=== PATIENT | male | born 1955 | race Caucasian/White ===

== ENCOUNTER → 2017-07-03 | Outpatient (CLI) | payer OTHER | END | disposition home or self-care (01) | LOC: KCIC 08:49 | DX: M17.11 Unilateral primary osteoarthritis, right knee (principal); M25.761 Osteophyte, right knee; I70.291 Other atherosclerosis of native arteries of extremities, right leg; Z91.81 History of falling | CPT/HCPCS: 73560 ==

== ENCOUNTER → 2019-04-15 | Outpatient (CLI) | payer MEDICARE ==
[2015-01-25 16:35] VITALS: BP 127/76
--- NOTE | 2019-04-15 12:55 | KCIC ---
EXAM: Right knee, 3 views. HISTORY: Pain after fall. COMPARISON: 07/03/2017. FINDINGS: 3 views of the right knee are obtained. There is moderate medial compartment joint space narrowing with subchondral sclerosis and marginal spurring. There is also moderate patellofemoral compartment spurring. There is a small knee effusion. IMPRESSION: 1. Moderate medial and patellofemoral compartment osteoarthritis of the right knee with small joint effusion. 2. No acute osseous finding. Electronically signed by: Arlene Hinojosa MD (04/15/2019 12:52 PM) [facility]
== END | disposition home or self-care (01) ==
LOC: KCIC 11:59
PROVIDERS: ATTEND Family Medicine
DX: M17.11 Unilateral primary osteoarthritis, right knee (principal); M25.461 Effusion, right knee; M76.891 Other specified enthesopathies of right lower limb, excluding foot
CPT/HCPCS: 73562

== ENCOUNTER → 2019-06-07 | Outpatient (CLI) | payer MEDICARE ==
[2015-01-25 16:35] VITALS: BP 127/76
[~2019-06-07] MED LIST: ACET325T9 PO; DICL75TA PO; TRAM50TA PO; ZOLP10TA PO
--- NOTE | 2019-06-07 10:17 | KCIC ---
MR of the right knee HISTORY: Right knee pain. Seen lateral pain for years. TECHNIQUE: Routine multiplanar sequences are obtained. FINDINGS: Mild blunting of the medial meniscus. Mild distortion. No definitive meniscal tear however. Degenerative tear of the lateral meniscus. Anterior cruciate ligament is somewhat heterogeneous and hyperintense likely due to degeneration and/or impingement. There is intercondylar notch stenosis due to osteophytes. No evidence of ligament rupture or displacement. Posterior cruciate ligament intact. Medial collateral ligament intact. Iliotibial band unremarkable. Fibular collateral ligament, biceps femoris tendon and popliteus tendon are intact. Extensor mechanism is intact. Severe patellofemoral joint DJD. Subchondral bone surface flattening with cysts. Moderate chondromalacia at the medial joint. Severe degenerative changes at the lateral joint with subchondral bone exposure and cystic change. No acute fracture. No aggressive bone destruction. Small intraosseous cyst of the proximal tibia adjacent to the PCL insertion, likely an intraosseous ganglion. Degenerative changes at the fabella femoral joint. Osteochondral loose body within the lateral suprapatellar recess measures 12 mm. Small joint effusion. Small Hallman's cyst. IMPRESSION: 1. Lateral meniscal tear. 2. Medial meniscal degenerative changes, without definitive convincing tear. 3. Severe DJD particularly at the lateral and patellofemoral joint. Loose body within the suprapatellar recess. Electronically signed by: Jesús Pappas MD (06/07/2019 10:14 AM) [id number]
== END | disposition home or self-care (01) ==
LOC: KCIC MRI 07:45
PROVIDERS: ATTEND Orthopaedic Surgery Sports Medicine
DX: S83.281A Other tear of lateral meniscus, current injury, right knee, initial encounter (principal); M17.0 Bilateral primary osteoarthritis of knee; M71.21 Synovial cyst of popliteal space [Baker], right knee; M25.461 Effusion, right knee; M94.261 Chondromalacia, right knee; M25.761 Osteophyte, right knee; X58.XXXA Exposure to other specified factors, initial encounter; Y93.89 Activity, other specified; Y92.89 Other specified places as the place of occurrence of the external cause; Y99.8 Other external cause status
CPT/HCPCS: 73721

== ENCOUNTER 2019-06-17 06:09 | Day surgery (SDC) | payer MEDICARE ==
[~2019-06-17] VITALS: Ht 165.1 cm; Wt 75.0 kg
[~2019-06-17 06:09] MED LIST changes: +ceFAZolin SODIUM IV Push 1 GM VIAL. IVP ONE
[2019-06-17] MEDS ORDERED: HYDROmorphone 2 MG/ML VIAL IV PRN (07:00)
[2019-06-17] MEDS ORDERED: LIDOCAINE 1% PF 2 ML VIAL. ID PRN (07:00)
[2019-06-17] MEDS ORDERED: fentaNYL PF VIAL 100 MCG/2 ML VIAL IV PRN (07:00)
[2019-06-17] MEDS ORDERED: ONDANSETRON PF 4 MG/2 ML VIAL. IV PRN (07:00)
[2019-06-17] MEDS ORDERED: MORPHINE SULFATE 2 MG/ML VIAL. IV PRN (07:00)
[2019-06-17] MEDS ORDERED: PROCHLORPERAZINE 10 MG/2 ML VIAL. IV PRN (07:00)
[2019-06-17] MEDS ORDERED: IV RINGERS,LACTATED 1000ML 1,000 ML IV SCH (07:00)
[2019-06-17] MEDS ORDERED: FAMOTIDINE 20 MG/2 ML VIAL ONE (07:12)
[2019-06-17] MEDS ORDERED: PROPOFOL 20 ML IV ONE (07:12)
[2019-06-17] MEDS ORDERED: MIDAZOLAM HCL/PF 2 MG/2 ML VIAL. ONE (07:12)
[2019-06-17] MEDS ORDERED: DEXAMETHASONE SOD PHOS 4 MG/ML VIAL ONE (07:12)
[2019-06-17] MEDS ORDERED: fentaNYL PF VIAL 100 MCG/2 ML VIAL ONE ×2 (07:12→08:41)
[2019-06-17] MEDS ORDERED: ONDANSETRON PF 4 MG/2 ML VIAL. ONE (07:12)
[2019-06-17] MEDS ORDERED: LIDOCAINE 2% PF 5 ML VIAL. ONE (07:12)
[2019-06-17] MEDS ORDERED: BUPIVACAINE MPF 0.5% 30 ML VIAL. ONE (07:20)
[2019-06-17] MEDS ORDERED: EPINEPHrine VIAL 30 MG/30 ML VIAL ONE (07:20)
[2019-06-17] MEDS ORDERED: LIDOCAINE 1% Multi-Dose 20 ML VIAL. ONE (07:20)
[2019-06-17] MEDS ORDERED: SEVOFLURANE 61 TO 120 MINUTES. IH ONE (08:20)
--- NOTE | 2019-06-17 08:37 | DISCH ---
DISCHARGE INSTRUCTIONS Condition on Discharge Condition on Discharge: Stable Activity After Discharge Activity Instructions for Disc: Other ROM activity Bathing Instructions: Shower-keep dressing dry Weight Bearing Status after Di: As tolerated Diet after Discharge Diet after Discharge: Regular Wound Incision Care Wound/Incision Care: Ice to area for comfort, Keep wound/cast CDI, Change dressing Contacting the DRShayna after DC Call your doctor for: Concerns you may have Follow-Up Follow up with: Anthony in 2 wks AMBER CALLOWAY II, MD Jun 17, 2019 08:37
--- NOTE | 2019-06-17 08:42 | PDOC4 ---
Operative Note Operative Note Date of procedure: 06/17/2019 Surgeon: Houston Calloway Asst.: Moe Diaz Preoperative diagnosis: Loose body right knee Postoperative diagnosis: Same Procedure performed: Arthroscopic loose body removal Findings: Loose body was approximately a 15 mm x 12 mm Full-thickness cartilage loss at patellofemoral compartment Grade 3-4 changes at medial and lateral compartments Intact ACL and PCL Anesthesia: Gen. Tourniquet time: Less than 30 minutes Blood loss: 5 mL Complications: None Reason for procedure: Patient is a pleasant 64-year-old gentleman I been following in my clinic for knee pain. He had painful catching and felt something popping out from underneath his kneecap frequently. He and I reviewed the imaging and after physical examination revealed palpable loose body, I did discuss with him that we may be a little bit about some of his symptoms but with underlying arthritis this would certainly not be a curative surgery. We discussed the risks, benefits, and alternatives and he elected to proceed. Description of procedure: Patient was greeted in the preoperative area by myself for the correct extremity was verified and marked. He was taken to the operative suite and his antibiotics are started as he was brought back. Once in the operating room, he was stretched gently supine to the operative room table and secured bed with all pressure points padded. He had successful induction of a general anesthetic. We then proceeded to prep and drape in our usual sterile fashion, his right lower extremity after we applied a nonsterile tourniquet and taped in place to his right thigh. We then conducted our standard preoperative timeout. After this, I palpated and marked surface anatomy and then exsanguinat ed the extremity with an Esmarch and insufflated tourniquet to 250 mmHg. After this, I incised skin for my anterolateral portal and introduced a blunt arthroscopic trocar into the suprapatellar pouch followed by the camera. I then conducted my diagnostic arthroscopy with the above-noted findings. Upon encountering the loose body, I used a grasper to withdraw it from the anteromedial portal. I then performed repeated aspiration maneuvers with the shaver and camera in the suprapatellar pouch and a assistant superintendent for curriculum using vigorous palpation in the popliteal fossa. After this, we removed all excess arthroscopic fluid and the arthroscopic interpretation. Skin was closed with simple interrupted 3-0 nylon. No complications. Surgery was tolerated well by the patient. At the conclusion, he was awakened and transferred gently supine to the hospital bed and taken to the PACU in a stable and expected condition. Postoperative plan is to discharge him home, allowing weight-bear as tolerated. I will see him back in my clinic in 2 weeks, sooner should a problem arise. HOUSTON CALLOWAY II, MD Jun 17, 2019 08:42
[2019-06-17] MEDS: fentaNYL PF VIAL 100 MCG/2 ML VIAL IV PRN ×2 (08:44→08:53)
[2019-06-17] MEDS ORDERED: HYDROcodone/APAP 5/325MG 1 TAB TABLET ONE (08:54)
[2019-06-17] MEDS ORDERED: HYDR-3164 PO (08:59)
[2019-06-17] MEDS ORDERED: HYDROcodone/APAP 5/325MG 1 TAB TABLET PO ONE (09:00)
[2019-06-17 09:20] VITALS: BP 131/76
== END 2019-06-17 09:33 | disposition home or self-care (01) ==
LOC: SURG 06:09
PROVIDERS: ATTEND Orthopaedic Surgery Sports Medicine
DX: M23.41 Loose body in knee, right knee (principal); E66.3 Overweight; Z68.27 Body mass index [BMI] 27.0-27.9, adult; Z87.891 Personal history of nicotine dependence; Z87.442 Personal history of urinary calculi; Z79.899 Other long term (current) drug therapy
CPT/HCPCS: 29874; A7015; C1782; J0171; J0690; J1100; J2001; J2250; J2405; J2704; J3010; J3490

== ENCOUNTER → 2020-04-20 | Outpatient (CLI) | payer MEDICARE ==
[~2020-04-20] MED LIST changes: +ACET500T68 PO; +CELE200C PO; +HYDR-3164 PO; +MULT-245 PO; +OXYC5CAP PO; +WARF7.5T45 PO; -ceFAZolin SODIUM IV Push 1 GM VIAL. IVP ONE
[2020-04-20 09:36] LABS: BASO # 0.1 x10^3/uL (0.0-0.2); BASO % 1 % (0-3); EOS # 0.4 x10^3/uL (0.0-0.7); EOS % 7 % (0-3); HEMATOCRIT 48.4 % (39.0-53.0); HEMOGLOBIN 16.5 g/dL (13.0-17.5); LYMPH # 1.7 x10^3/uL (1.0-4.8); LYMPH % 27 % (24-48); MEAN CORPUSCULAR HEMOGLOBIN 30 pg (25-35); MEAN CORPUSCULAR HGB CONC 34 g/dL (31-37); MEAN CORPUSCULAR VOLUME 87 fL (79-100); MONO # 0.7 x10^3/uL (0.0-1.1); MONO % 11 % (0-9); NEUT # 3.4 x10^3/uL (1.8-7.7); NEUT % 54 % (31-73); PLATELET COUNT 263 x10^3/uL (140-400); RED BLOOD COUNT 5.56 x10^6/uL (4.30-5.70); RED CELL DISTRIBUTION WIDTH 12.9 % (11.5-14.5); WHITE BLOOD COUNT 6.2 x10^3/uL (4.0-11.0)
[2020-04-20 09:43] LABS: ALBUMIN 4.1 g/dL (3.4-5.0); ANION GAP 10 (6-14); BLOOD UREA NITROGEN 18 mg/dL (8-26); CALCIUM 9.1 mg/dL (8.5-10.1); CARBON DIOXIDE 28 mmol/L (21-32); CHLORIDE 105 mmol/L (98-107); GFR 74.8; GLUCOSE 111 mg/dL (70-99); POTASSIUM 4.2 mmol/L (3.5-5.1); SODIUM 143 mmol/L (136-145)
[2020-04-20 09:46] LABS: PROTHROMBIN TIME PATIENT 12.5 SEC (11.7-14.0)
[2020-04-20 09:47] LABS: C-REACTIVE PROTEIN < 0.5 mg/L (0-3.3)
--- NOTE | 2020-04-20 13:21 | EKG ---
[facility] [address] [place] [address] Test Date: 2020-04-20 Test Time: 12:50:57 Pat Name: ABRAN US Department: Room: Gender: M Photo Intern: : 1955 Requested By: LOCO WILLOUGHBY Order Number: [id number] Reading MD: Micheal Webster Measurements Intervals Walton Rate: 66 P: 31 WV: 132 QRS: 1 QRSD: 90 T: 42 QT: 392 QTc: 413 Interpretive Statements SINUS RHYTHM QRS(T) CONTOUR ABNORMALITY CONSISTENT WITH INFERIOR INFARCT PROBABLY OLD ABNORMAL ECG RI6.02 No previous ECG available for comparison Electronically Signed On 04-20-2020 16:19:44 [employer] by Michael Webster
--- NOTE | 2020-04-20 14:21 | RAD ---
EXAM: Chest, 2 views. HISTORY: Tobacco use. COMPARISON: None. FINDINGS: 2 views of the chest are obtained. There is no infiltrate, pleural effusion or pneumothorax . The heart is normal in size. IMPRESSION: No acute pulmonary finding. Electronically signed by: Arlene Hinojosa MD (04/20/2020 2:18 PM) [id number]
[2020-04-21 00:11] LABS: HEMOGLOBIN A1C 5.4 % (4.8-5.6)
== END ==
LOC: SURGPAT 12:56
PROVIDERS: ATTEND Orthopaedic Surgery
DX: Z01.818 Encounter for other preprocedural examination (principal); M17.11 Unilateral primary osteoarthritis, right knee; M16.52 Unilateral post-traumatic osteoarthritis, left hip; Z96.651 Presence of right artificial knee joint
CPT/HCPCS: 36415; 71046; 80048; 82040; 82306; 83036; 85025; 85610; 85730; 86140; 87641; 93005

== ENCOUNTER → 2020-05-01 | Outpatient (CLI) | payer MEDICARE | LOC: LAB 10:08 | PROVIDERS: ATTEND Orthopaedic Surgery | DX: Z01.812 Encounter for preprocedural laboratory examination (principal); Z20.822 Contact with and (suspected) exposure to COVID-19 | CPT/HCPCS: U0003 ==

== ENCOUNTER 2020-05-05 06:03 | Inpatient (IN) | payer MEDICARE ==
[~2020-05-05] VITALS: Ht 165.1 cm; Wt 76.2 kg
[2020-05-05] VITALS (8 sets, daily range): BP systolic 102–136; BP diastolic 54–81
[~2020-05-05 06:03] MED LIST changes: +ACETAMINOPHEN 500 MG TABLET PO PRN; +BACITRACIN 50,000 UNIT in IV NORMAL SALINE 1000ML BAG 1,000 ML IRR ONE; -CELE200C PO; +GABAPENTIN 300 MG CAPSULE. PO PRN; +IV RINGERS,LACTATED 1000ML 1,000 ML IV SCH; +MELOXICAM 7.5 MG TABLET PO PRN; +MORPHINE SULFATE 5 MG, KETOROLAC 30MG VIAL 30 MG, ROPIVacaine 0.5% PF 60 ML, EPINEPHrin... INT ART ONE; -OXYC5CAP PO; +PROCHLORPERAZINE 10 MG/2 ML VIAL. IVP PRN; +TRANEXAMIC ACID 1,000 MG in IV NS 50ML -- 1ST BAG INJ ONE; -WARF7.5T45 PO; +ceFAZolin SODIUM IV Push 1 GM VIAL. IVP PRN; +fentaNYL PF VIAL 100 MCG/2 ML VIAL IVP PRN
[2020-05-05] MEDS ORDERED: VANCOMYCIN 1 GM VIAL. ONE (07:02)
[2020-05-05] MEDS ORDERED: DEXAMETHASONE SOD PHOS 4 MG/ML VIAL ONE (07:04)
[2020-05-05] MEDS ORDERED: fentaNYL PF VIAL 100 MCG/2 ML VIAL ONE ×2 (07:04→08:44)
[2020-05-05] MEDS ORDERED: LIDOCAINE 2% PF 5 ML VIAL. ONE (07:04)
[2020-05-05] MEDS ORDERED: ONDANSETRON PF 4 MG/2 ML VIAL. ONE (07:04)
[2020-05-05] MEDS ORDERED: PROPOFOL 10 MG/ML (20ML) VIAL. IV ONE (07:04)
[2020-05-05 07:19] LABS: PROTHROMBIN TIME PATIENT 12.9 SEC (11.7-14.0)
[2020-05-05] MEDS ORDERED: TRANEXAMIC ACID 1,000 MG/10 ML VIAL. ONE ×2 (07:29→07:30)
[2020-05-05] MEDS ORDERED: CALCIUM CARBONATE 500 MG TAB.CHEW PO PRN (07:30)
[2020-05-05] MEDS ORDERED: DEXTROSE 50% 25 GM / 50ML DISP.SYRIN. IV PRN (07:30)
[2020-05-05] MEDS ORDERED: 0.9 % SODIUM CHLORIDE 10 ML DISP.SYRIN. IV PRN (07:30)
[2020-05-05] MEDS ORDERED: IV NORMAL SALINE 1000ML BAG 1,000 ML IV SCH (07:30)
[2020-05-05] MEDS ORDERED: diphenhydrAMINE 50 MG/ML VIAL IVP PRN (07:30)
[2020-05-05] MEDS ORDERED: fentaNYL PF VIAL 100 MCG/2 ML VIAL IVP PRN (07:30)
[2020-05-05] MEDS ORDERED: PROCHLORPERAZINE 5 MG TABLET. PO PRN (07:30)
--- NOTE | 2020-05-05 07:37 | HP ---
ADMIT DATE: 05/05/2020 PREOPERATIVE HISTORY AND PHYSICAL CHIEF COMPLAINT: Right knee pain and degenerative change. HISTORY OF PRESENT ILLNESS: The patient is a 65-year-old male who had undergone a previous more remote right knee arthroscopy and had significant degenerative changes at the time and although the left knee has responded better to injections for symptomatic relief, the right knee continues to have significant pain and limitations, which he wishes to have more definitive treatment for. PAST MEDICAL HISTORY: Significant for kidney stones, benign prostatic hypertrophy, osteoarthritis, weakness, insomnia. PAST SURGICAL HISTORY: Previous knee arthroscopy as indicated and a colonoscopy. Knee scope in 06/2019, colonoscopy in 2011. FAMILY HISTORY: Mother is from diabetes, lung disease and hypertension. Father at 95 years old, healthy. Has a brother, two sisters that are alive and healthy and a son and daughter, likewise healthy. SOCIAL HISTORY: He is a former smoker, quit well over 10 years ago. Denies alcohol or drug use. REVIEW OF SYSTEMS: Denies any chest pain, shortness of breath, fever, chills, other constitutional symptoms, focal weakness, radiating pain, numbness, tingling. ALLERGIES: He has no known drug allergies. MEDICATIONS: List is reviewed. PHYSICAL EXAMINATION: VITAL SIGNS: Per admission sheet. HEENT: Atraumatic, normocephalic. HEART: Regular rate and rhythm. LUNGS: Clear to auscultation bilaterally. ABDOMEN: Benign. EXTREMITIES: Examination of his knees reveals full extension to about 120 degrees flexion. Ligaments are stable. He has significant patellofemoral crepitus. Joint line pain more severe lateral than medial. He has a normal examination of bilateral hips and ankles with intact motor function, distal pulses, sensation, reflexes, skin in both lower extremities throughout. IMAGING: X-rays show [id number] lateral compartment joint space narrowing, less severe at the medial or patellofemoral compartments and he has some valgus. X-rays on the left knee show primarily medial wear and varus. IMPRESSION: Degenerative bilateral knees with right knee pain, worse than left. TREATMENT PLAN: Since his right knee is really unresponsive to injection and continues to be limiting to his activities of daily living. We had previously gone through risks, benefits, postoperative course of total knee arthroplasty including the possibility of infection, continued pain, premature wear or loosening, nerve or blood vessel damage, medical or other anesthetic complications among others. All his questions were answered and he wishes to proceed with surgical evaluation and treatment to include a [facility] observation to follow. LOCO WILLOUGHBY MD DR: EVER/penelope JOB#: [id number] / [id number]
[2020-05-05 07:41] LABS: BASO # 0.1 x10^3/uL (0.0-0.2); BASO % 1 % (0-3); EOS # 0.5 x10^3/uL (0.0-0.7); EOS % 8 % (0-3); HEMATOCRIT 46.9 % (39.0-53.0); HEMOGLOBIN 15.9 g/dL (13.0-17.5); LYMPH # 1.6 x10^3/uL (1.0-4.8); LYMPH % 26 % (24-48); MEAN CORPUSCULAR HEMOGLOBIN 30 pg (25-35); MEAN CORPUSCULAR HGB CONC 34 g/dL (31-37); MEAN CORPUSCULAR VOLUME 87 fL (79-100); MONO # 0.6 x10^3/uL (0.0-1.1); MONO % 11 % (0-9); NEUT # 3.2 x10^3/uL (1.8-7.7); NEUT % 54 % (31-73); PLATELET COUNT 235 x10^3/uL (140-400)
[2020-05-05] MEDS ORDERED: ceFAZolin SODIUM IV Push 1 GM VIAL. IVP SCH (07:45)
[2020-05-05] MEDS ORDERED: TRANEXAMIC ACID 1,000 MG in IV NS 50ML -- 2ND BAG INJ ONE (08:00)
[2020-05-05] MEDS ORDERED: SEVOFLURANE 61 TO 120 MINUTES. IH ONE (09:17)
[2020-05-05] MEDS ORDERED: MORPHINE SULFATE 2 MG/ML VIAL. ONE (09:34)
[2020-05-05] MEDS: MORPHINE SULFATE 2 MG/ML VIAL. IVP PRN ×3 (09:39→23:14)
[2020-05-05] MEDS ORDERED: PROCHLORPERAZINE 10 MG/2 ML VIAL. ONE (09:43)
[2020-05-05] MEDS ORDERED: HYDROmorphone 2 MG/ML VIAL ONE (09:52)
[2020-05-05] MEDS: HYDROmorphone 2 MG/ML VIAL IVP PRN ×2 (09:58→10:10)
--- NOTE | 2020-05-05 09:59 | PDOC4 ---
Operative Note Operative Note Date of surgery: 05/05/2020 Preoperative diagnosis: Right knee degenerative joint disease Postoperative diagnosis: Same Operative procedure: Right total knee arthroplasty Surgeon: Zeinab Assistants: Brien aleman Anesthesia: General Estimated blood loss: 25 cc Complications: None Specimens: Cartilage surfaces to pathology Drains: None Operative indications: Please see my dictated preoperative history and physical and clinic notes for detailed operative indications Operative text: Patient was identified procedure verified patient placed in the supine position on the operating table. After adequate amounts of general anesthesia were administered the right lower extremity was prepped and draped in standard sterile fashion with a thigh tourniquet. After timeout was performed patient procedure identified and verified the right lower extremity was exsanguinated by Esmarch bandage tourniquet inflated to 300 mmHg. A midline incision was made with a mid vastus extending to a medial parapatellar approach. Patella was everted fat pad was excised. Distal femur was drilled and the distal femur was cut in 7 degrees alignment and an extra 2 mm distally due to her valgus and flexion contracture. Proximal tibia cut was made with the extra- articular cutting jig adjusted to achieve alignment with the second toe. Previous valgus was corrected and good medial lateral balance was obtained. Distal femur was sized at a size 8 AP and chamfer cuts were made and flexion extension balancing carried out. A size F tibial component was placed along with a size 8 femur persona standard component with a medial congruent 10 mm trial component. Excellent ligament balance and stability were noted both in flexion and extension. Tibia was drilled and broached and femoral lugs were drilled. Trial components were removed through irrigation carried out with normal saline solution. The following components were then cemented in place with polymethylmethacrylate cement: A size F persona tibial component. A size 8 standard persona femoral component. Excess cement was removed and a vitamin E medial congruent spacer 10 mm height was locked in place. Dilute Betadine lavage was then used and followed up with normal saline solution and pulse lavage. Intra-articular mixture was injected subperiosteally and throughout the joint capsule. Hemovac drain and intra-articular catheter were then placed. 1 g vancomycin was placed in the knee joint and closure of the medial approach was carried out with running #1 PDS strata fix suture. Subcutaneous closure with buried Vicryl suture subcuticular closure with 3-0 strata fix Monocryl. Sae dressing was placed patient was returned to recovery room in stable condition having tolerated procedure well toes were noted to be warm pink following deflation of the tourniquet. Brien aleman was present for the procedure and assisted in the patient positioning prepping draping retraction closure and dressings. LOCO WILLOUGHBY MD May 05, 2020 09:59
--- NOTE | 2020-05-05 10:31 | RAD ---
Right knee: 05/05/2020 9:35 AM. Reason for study: Postoperative Comparison: 03/22/2020. Technique: Two views of the right knee are obtained. Findings: There are findings consistent with recent right total knee arthroplasty, with hardware in good align ment and position. Immediate postsurgical changes within the regional soft tissues are noted. No comp lications are evident. Impression: Status post right total knee arthroplasty. Electronically signed by: Nisha Coughlin MD (05/05/2020 10:29 AM) [id number]
[2020-05-05] MEDS: oxyCODONE IR 5 MG TABLET PO PRN ×3 (11:47→20:32)
[2020-05-05] MEDS: ONDANSETRON PF 4 MG/2 ML VIAL. IVP SCH ×2 (11:49→18:17)
[2020-05-05] MEDS: ONDANSETRON ODT 4 MG TAB.RAPDIS. PO SCH ×2 (11:49→18:00)
--- NOTE | 2020-05-05 12:05 | NUR ---
Patient arrived to the unit around 1058. at bedside. Patient is on room air and is ALOx4. PETER hose on left leg as well as an SCD. BRIA on right foot. RTK covered with DENAE wrap. GABI dressing working properly with green light flashing. IV in left hand infusing properly. Oriented to the unit. No concerns noted at this time. Will continue to monitor.
--- NOTE | 2020-05-05 12:17 | NUR ---
Upon admission to the unit patient denied nausea. However, after he ate all of his lunch he puked up most of his food immediately after. He still states he feels fine but this nurse gave zofran IV just incase. Will continue to monitor.
[2020-05-05] MEDS: ceFAZolin SODIUM IV Push 1 GM VIAL. IVP SCH ×2 (13:15→18:17)
[2020-05-05] MEDS ORDERED: WARFARIN 7.5 MG TABLET. PO ONE (16:00)
[2020-05-05] MEDS: FERROUS SULFATE 325 MG TABLET. PO SCH (16:11)
[2020-05-05] MEDS ORDERED: KETOROLAC 30MG VIAL 30 MG, BUPIVACAINE MPF 0.25% 20 ML, EPINEPHrine 0.5 MG in TOTAL VOL... INT ART SCH (18:00)
[2020-05-05] MEDS: ZOLPIDEM 5 MG TABLET. PO PRN ×2 (20:32→21:13)
[2020-05-06] MEDS: ceFAZolin SODIUM IV Push 1 GM VIAL. IVP SCH (01:13)
[2020-05-06] MEDS: MORPHINE SULFATE 2 MG/ML VIAL. IVP PRN (03:15)
[2020-05-06 03:16] VITALS: BP 94/55
[2020-05-06 03:45] VITALS: BP 92/57
--- NOTE | 2020-05-06 04:08 | NUR ---
Morphine IVP required for pain mgmt. Pain score 6-8. BP 94/55. Denies being dizzy or SOA. IVF continue.
[2020-05-06 05:29] VITALS: BP 89/58
[2020-05-06] MEDS: GABAPENTIN 100 MG CAPSULE. PO SCH ×3 (05:58→21:53)
[2020-05-06] MEDS: ONDANSETRON ODT 4 MG TAB.RAPDIS. PO SCH ×2 (05:59)
[2020-05-06] MEDS: traMADol 50 MG TABLET PO SCH ×3 (05:59→17:19)
[2020-05-06] MEDS: ONDANSETRON PF 4 MG/2 ML VIAL. IVP SCH ×2 (06:00)
[2020-05-06] MEDS ORDERED: MAGNESIUM HYDROXIDE 2,400 MG/30 ML ORAL.SUSP. PO PRN (06:00)
[2020-05-06 06:18] VITALS: BP 115/71
[2020-05-06] MEDS: ACETAMINOPHEN 500 MG TABLET PO SCH ×3 (06:28→18:33)
--- NOTE | 2020-05-06 06:40 | NUR ---
BP 115/71. NS running 100cc/hr.
[2020-05-06 08:47] LABS: PROTHROMBIN TIME PATIENT 16.1 SEC (11.7-14.0)
[2020-05-06 09:02] LABS: HEMATOCRIT 37.9 % (39.0-53.0); HEMOGLOBIN 13.2 g/dL (13.0-17.5)
[2020-05-06] MEDS: MULTIVITAMIN with MINERAL TABLET. PO SCH (09:07)
[2020-05-06] MEDS: SENNOSIDES/DOCUSATE 8.6/50MG TABLET. PO SCH (09:07)
[2020-05-06] MEDS: FERROUS SULFATE 325 MG TABLET. PO SCH ×2 (09:07→17:16)
[2020-05-06] MEDS: MELOXICAM 7.5 MG TABLET PO SCH (09:07)
[2020-05-06] MEDS: oxyCODONE IR 5 MG TABLET PO PRN ×3 (09:08→19:16)
--- NOTE | 2020-05-06 11:33 | NUR ---
Pharmacy Warfarin Dosing Note S:Pharmacy consulted to assist with anticoagulation therapy started 05/05/20 with target INR: 1.6 - 2.5 O:ABRAN US is a 65 year old M with TKA LABS: Last INR: 1.3 Last HGB: 13.2 Last HCT: 37.9 Last PLT: Last dose of 7.5 mg given on 05/05/20 at 2113 Previous Regimen: Vitamin K given: N Drug Interaction Changes: Ongoing Drug Interactions: A:INR of 1.3 is below desired range. Target range for this patient is: 1.6 - 2.5 P: Warfarin dose: 5 mg Today at 1600 Bridge Therapy: None Next INR due TOMORROW. Pharmacy anticoagulation service will continue to follow. NAIF ORNELAS [facility], 05/06/20 [id number]
[2020-05-06] MEDS ORDERED: ONDANSETRON ODT 4 MG TAB.RAPDIS. PO PRN (12:00)
[2020-05-06] MEDS ORDERED: ONDANSETRON PF 4 MG/2 ML VIAL. IVP PRN (12:00)
[2020-05-06] MEDS ORDERED: WARFARIN 5 MG TABLET. PO ONE (16:00)
[2020-05-06] MEDS ORDERED: BISACODYL 10 MG SUPP.RECT. PR PRN (16:00)
[2020-05-06 18:02] VITALS: BP 137/81
--- NOTE | 2020-05-06 19:26 | PDOC ---
PROGRESS NOTES Date of Service DATE: 05/06/20 TIME: 19:24 Subjective Subjective Problems overnight: Had an episode of vomiting today said he drank too much water Objective Vital Signs Vital Signs Date Time Temp Pulse Resp B/P (MAP) Pulse Ox O2 Delivery O2 Flow Rate FiO2 05/06/20 19:16 20 Room Air 05/06/20 18:02 98.1 80 137/81 (99) 95 98.1 05/05/20 09:58 10.0 Physical Exam Knee has good range of motion stability tracking and distal neurovascular status intact, dressing clean dry intact Labs Laboratory Tests Test 05/05/20 06:45 05/06/20 08:12 05/06/20 08:26 White Blood Count 6.0 x10^3/uL (4.0-11.0) Red Blood Count 5.40 x10^6/uL (4.30-5.70) Hemoglobin 15.9 g/dL (13.0-17.5) 13.2 g/dL (13.0-17.5) Hematocrit 46.9 % (39.0-53.0) 37.9 % (39.0-53.0) Mean Corpuscular Volume 87 fL (79-100) Mean Corpuscular Hemoglobin 30 pg (25-35) Mean Corpuscular Hemoglobin Concent 34 g/dL (31-37) 35 g/dL (31-37) Red Cell Distribution Width 13.0 % (11.5-14.5) Platelet Count 235 x10^3/uL (140-400) Neutrophils (%) (Auto) 54 % (31-73) Lymphocytes (%) (Auto) 26 % (24-48) Monocytes (%) (Auto) 11 % (0-9) Eosinophils (%) (Auto) 8 % (0-3) Basophils (%) (Auto) 1 % (0-3) Neutrophils # (Auto) 3.2 x10^3/uL (1.8-7.7) Lymphocytes # (Auto) 1.6 x10^3/uL (1.0-4.8) Monocytes # (Auto) 0.6 x10^3/uL (0.0-1.1) Eosinophils # (Auto) 0.5 x10^3/uL (0.0-0.7) Basophils # (Auto) 0.1 x10^3/uL (0.0-0.2) Prothrombin Time 12.9 SEC (11.7-14.0) 16.1 SEC (11.7-14.0) Prothromb Time International Ratio 1.0 (0.8-1.1) 1.3 (0.8-1.1) Activated Partial Thromboplast Time 28 SEC (24-38) Laboratory Tests Test 05/06/20 08:12 05/06/20 08:26 Prothrombin Time 16.1 SEC (11.7-14.0) Prothromb Time International Ratio 1.3 (0.8-1.1) Hemoglobin 13.2 g/dL (13.0-17.5) Hematocrit 37.9 % (39.0-53.0) Mean Corpuscular Hemoglobin Concent 35 g/dL (31-37) Imaging Postop x-rays show excellent alignment total knee arthroplasty Assessment Assessment POD#1 total knee arthroplasty Plan Plan of Care Adjust medications for nausea vomiting episode Continue mobilize with physical therapy Warfarin anticoagulation Justicifation of Admission Dx: Justifications for Admission: Justification of Admission Dx: Yes (Vomiting episode earlier today adjusting medications) LOCO WILLOUGHBY MD May 06, 2020 19:26
[2020-05-06] MEDS: ZOLPIDEM 5 MG TABLET. PO PRN (20:45)
[2020-05-07] MEDS: oxyCODONE IR 5 MG TABLET PO PRN ×5 (00:59→21:01)
[2020-05-07] MEDS: ACETAMINOPHEN 500 MG TABLET PO SCH ×4 (00:59→18:25)
[2020-05-07] MEDS: traMADol 50 MG TABLET PO SCH ×4 (03:26→18:25)
[2020-05-07] MEDS: GABAPENTIN 100 MG CAPSULE. PO SCH (06:32)
[2020-05-07 06:43] VITALS: BP 137/89
[2020-05-07] MEDS: MELOXICAM 7.5 MG TABLET PO SCH (08:29)
[2020-05-07] MEDS: SENNOSIDES/DOCUSATE 8.6/50MG TABLET. PO SCH (08:29)
[2020-05-07] MEDS: FERROUS SULFATE 325 MG TABLET. PO SCH ×2 (08:29→17:04)
[2020-05-07] MEDS: MULTIVITAMIN with MINERAL TABLET. PO SCH (08:29)
[2020-05-07 08:41] LABS: PROTHROMBIN TIME PATIENT 15.8 SEC (11.7-14.0)
[2020-05-07 10:02] LABS: HEMATOCRIT 38.9 % (39.0-53.0); HEMOGLOBIN 13.6 g/dL (13.0-17.5)
[2020-05-07] MEDS ORDERED: CELE200C PO (12:12)
[2020-05-07] MEDS ORDERED: WARFARIN 5 MG TABLET. PO ONE (16:00)
[2020-05-07 17:56] VITALS: BP 142/79
[2020-05-07] MEDS: ZOLPIDEM 5 MG TABLET. PO PRN (20:56)
[2020-05-08] MEDS: ACETAMINOPHEN 500 MG TABLET PO SCH ×3 (01:00→12:15)
[2020-05-08] MEDS: oxyCODONE IR 5 MG TABLET PO PRN ×3 (04:15→14:18)
[2020-05-08] MEDS ORDERED: MAGNESIUM HYDROXIDE 2,400 MG/30 ML ORAL.SUSP. PO ONE (04:45)
[2020-05-08] MEDS: traMADol 50 MG TABLET PO SCH ×3 (06:27→12:12)
[2020-05-08 06:30] LABS: HEMATOCRIT 40.9 % (39.0-53.0)
[2020-05-08 06:31] VITALS: BP 124/84
--- NOTE | 2020-05-08 06:36 | NUR ---
Slept well. Currently in the chair. Rating pain 6-7/10. Ultram and Tramadol given per schedule. VSS. Anticipates discharge today.
[2020-05-08 06:39] LABS: PROTHROMBIN TIME PATIENT 15.3 SEC (11.7-14.0)
[2020-05-08] MEDS: MELOXICAM 7.5 MG TABLET PO SCH (07:57)
[2020-05-08] MEDS: MULTIVITAMIN with MINERAL TABLET. PO SCH (07:57)
[2020-05-08] MEDS: SENNOSIDES/DOCUSATE 8.6/50MG TABLET. PO SCH (07:57)
[2020-05-08] MEDS: FERROUS SULFATE 325 MG TABLET. PO SCH (07:57)
--- NOTE | 2020-05-08 10:16 | NUR ---
Pharmacy Warfarin Dosing Note S: Pharmacy consulted to assist with anticoagulation therapy started 05/05/20 O: ABRAN US is a 65 year old M with TKA LABS: Last INR: 1.2 Last HGB: 14.0 Last HCT: 40.9 Last PLT: 235 Last dose of 7.5 mg given on 05/07/20 at 1704 Ongoing Drug Interactions: MOBIC A:INR of 1.2 is below desired range. Target range for this patient is: 1.6 - 2.5 P: Warfarin dose: 10 mg Today prior to discharge Bridge Therapy: None Next INR due week of 05/11, 05/18, 05/25 Pharmacy anticoagulation service will continue to follow until end of therapy 06/02/20. [facility], 05/08/20 1016
[2020-05-08] MEDS ORDERED: OXYC5CAP PO (13:30)
[2020-05-08] MEDS ORDERED: WARF7.5T45 PO (13:30)
[2020-05-08] MEDS ORDERED: WARFARIN 5 MG TABLET. PO ONE (14:00)
--- NOTE | 2020-05-08 14:03 | DS ---
DATE OF DISCHARGE: 05/08/2020 PRINCIPAL DIAGNOSIS: Degenerative joint disease, right knee. PROCEDURE: Right total knee arthroplasty. DISPOSITION: Home with outpatient physical therapy. DISPOSITION MEDICATIONS: Warfarin 7.5 mg daily initially and as adjusted by [facility], oxycodone 5 mg p.o. q. 4 hours p.r.n. severe pain, dispensed #40; tramadol 50 mg p.o. q. 4 hours p.r.n. for moderate pain. Continue other preoperative medications including Celebrex, stop extra Tylenol. ACTIVITY: Weightbearing as tolerated. Keep GABI dressing intact. Call if saturated, otherwise clip off tail of dressing when suction machine stops and tape over to maintain seal. Follow up in [address] Arriola, weightbearing as tolerated, outpatient physical therapy per standard total knee protocol. BRIEF DESCRIPTION OF HOSPITAL COURSE: The patient underwent uncomplicated total knee arthroplasty on the right. Postoperatively had a couple of vomiting episodes and we were adjusting medication regimen to deal with that as one of those happened early in the morning on postop day #1 and even on postoperative day #3. He progressed through physical therapy quite well. Distal neurovascular status intact. He had good range of motion and stability of the knee and was discharged home in stable condition. LOCO ARRIOLA MD DR: EVER/penelope JOB#: [id number] / [id number]
[2020-05-08 14:30] VITALS: BP 145/82
--- NOTE | 2020-05-08 15:15 | NUR ---
Patient left around 1450 with his . Discharge education completed by this nurse, therapy, pharmacy, and the doctor prior to discharge. GABI dressing CDI and working properly with only a scant spot of blood present so it was not changed. NO IV access present on discharge. Coumadin instructions gone over in detail and coumadin given to the patient by pharmacy. Outpatient therapy set up by tool planner. No concerns noted at discharge.
--- NOTE | 2020-05-11 08:06 | PATHOLOGY ---
[facility] Accession Number: [id number] . 01 Material submitted: . knee - RIGHT KNEE BONE AND TISSUE. Modifiers: right . 01 Clinical history: . RIGHT KNEE PAIN/OSTEOARTHRITIS . 02 Diagnosis: Segments of bone and soft tissue, right total knee arthroplasty: - Advanced degenerative arthritis. - Focal clusters of hemosiderin-laden macrophages within papillary synovial tissue. . (JPM:mml; 05/08/2020) QLM 05/08/2020 1613 Local . 02 Electronically signed: . Chris Macias MD, Pathologist NPI- [id number] . 01 Gross description: . The specimen is received in formalin, labeled "Dave Pearce, right knee bone and tissue" and consists of multiple segments of bone including the tibial plateau with attached yellow lobulated tissue measuring 15.6 x 13.3 x 1.9 cm. The meniscus is present. The articular surfaces display extensive eburnation. [employer] sections are submitted in A1-A2 with A2 following decalcification. (SDY; 05/07/2020) SYU/SYU 05/07/2020 1457 Local . 02 Pathologist provided ICD-10: M17.11 . 02 CPT . 540587, [id number] Specimen Comment: A courtesy copy of this report has been sent to [phone], [phone] Specimen Comment: [id number] Specimen Comment: Report sent to / DR RIGGS Performed at: 01 [facility] [address], [place] [id number] MD Vince Pretty MD Phone: [phone] Performed at: 02 [facility] [address] [place], [place] [id number] MD Chris Macias MD Phone: [phone]
== END 2020-05-08 15:00 | disposition home or self-care (01) | DRG 470 ==
LOC: SURG 06:03 → 4 SOUTHEST 07:25 → UNDOADMOB 10:16 → 4 SOUTHEST 10:16 → OBSVTOIN 05-06 10:08
PROVIDERS: ADMIT Orthopaedic Surgery; ATTEND Orthopaedic Surgery
PROC: 0SRC0J9 Replacement of Right Knee Joint with Synthetic Substitute, Cemented, Open Approach (ICD-10-PCS; principal; 2020-05-05 07:30)
DX: M17.11 Unilateral primary osteoarthritis, right knee (principal); N40.0 Benign prostatic hyperplasia without lower urinary tract symptoms; Z82.49 Family history of ischemic heart disease and other diseases of the circulatory system; G47.00 Insomnia, unspecified; Z83.3 Family history of diabetes mellitus; Z87.442 Personal history of urinary calculi; Z87.891 Personal history of nicotine dependence; Z96.651 Presence of right artificial knee joint; Z79.899 Other long term (current) drug therapy
CPT/HCPCS: 36415; 73560; 85014; 85018; 85025; 85610; 85730; 86850; 86900; 86901; 88304; 88311; C1713; G0378; G0379; J0171; J0690; J0780; J1100; J1170; J1885; J2270; J2405; J2704; J2795; J3010; J3370; J3490; J7030; 97116-GP; 97150-GP; 97530-GO; 97530-GP; 97535-GO; C1769